=== PATIENT | male | born 1960 | race Caucasian/White ===

== ENCOUNTER → 2024-02-06 17:32 | Outpatient (REF) | payer OTHER, SELFPAY | LOC: MRI 3T 17:32 | PROVIDERS: ATTENDING PHYSICIAN Family Medicine | DX: Z86.79 Personal history of other diseases of the circulatory system (principal) | CPT/HCPCS: 70546; A9585 ==

== ENCOUNTER → 2024-06-11 15:33 | Outpatient (REF) | payer OTHER, SELFPAY | LOC: RAD 15:33 | PROVIDERS: ATTENDING PHYSICIAN Family Medicine | DX: E11.22 Type 2 diabetes mellitus with diabetic chronic kidney disease (principal); S89.92XS Unspecified injury of left lower leg, sequela; M79.604 Pain in right leg; M79.605 Pain in left leg | CPT/HCPCS: 72110; 73523; 73552 ==

== ENCOUNTER 2024-11-29 18:35 | Emergency (ER) | payer OTHER, SELFPAY ==
[2024-11-29 18:40] VITALS: BP 187/87
[2024-11-29 20:40] VITALS: BMI 26.2
[2024-11-29 20:42] VITALS: BP 154/83
--- NOTE | 2024-11-29 20:44 | EDRN ---
Pt complains of swelling in L arm, pain in L elbow. Pt notes rash on inner L arm and says he was told his HR is elevated. Pt noticed swelling on Sunday. This visited prompted by pain and having no one else to look at his arm. Pt did not take
anything for this pain however he takes tylenol arthritis for chronic pain. Pt also takes meloxicam so he does not take too much aspirin. No cp, sob, leg pain/swelling, long car ride/air travel, injury to L arm, fever/chills/cough.
[2024-11-29 21:00] VITALS: BP 148/80
[2024-11-29 22:00] VITALS: BP 164/92
[2024-11-29 23:00] VITALS: BP 145/81
--- NOTE | 2024-11-29 23:24 | ED.GENMED ---
History of Present Illness
General
Chief Complaint: DVT/Possible Blood Clot
Time Seen by Provider: 11/29/24 21:47
History of Present Illness
History of Present Illness:
63-year-old male with history of osteoarthritis presenting to the emergency department with left upper extremity pain and swelling. Notes that he noticed the symptoms 2 days ago. Denies inciting injury or trauma. Pain is worse in the forearm
region. Denies numbness or tingling. Denies fever. Denies ever having this in the past. Denies any history of gout. Denies chest pain or difficulty breathing. He did not take any pain medication prior to arrival. Denies additional medical
complaints
Past History
Past History
ED Past Medical History: HTN
Social History
Tobacco: Smoker
Alcohol: Daily
Drug: None
Personal:
Phy Exam
Physical Exam
Physical Exam:
General: Well-appearing, no clinical signs of dehydration, nontoxic and in no acute distress
HEENT: protecting airway
Neck: appears supple
CV: Normal heart rate, regular rhythm
Resp: No accessory muscle use, no increased work of breathing, lungs clear to auscultation bilaterally
Abd: No distention
Extremities: Denies swelling to the left forearm with erythema and warmth. Compartments soft. Distal sensation and pulses intact. Range of motion grossly intact. No significant tenderness to the wrist or elbow joint.
Neuro: alert, no focal neurologic deficit
: deferred
Rectal: deferred
Psych: Normal affect
Skin: Intact
Course
Orders/Labs/Results
Orders:
Orders
11/29/24 18:42
EKG [Electrocardiogram (*1)] Urgent
Reason for Study: Tachycardia
11/29/24 18:43
EKG- Treatment ONCE
11/29/24 22:19
0.9% Sodium Chloride 1000 ml [Nss] 1,000 ml IV BOLUS
Ketorolac [Toradol] 15 mg IV NOW STA
US Periph Venous UPPER Ext LT Urgent
Comment:
Reason For Exam: swelling and pain
11/29/24 23:24
Basic Metabolic Panel Urgent
CPK [Creatine Phosphokinase] Urgent
Complete Blood Count/With Diff Urgent
11/30/24 00:35
Apixaban [Eliquis] 10 mg PO ONCE ONE
Abnormal Lab Results
11/29/24
23:24
RBC 4.37 L 10^6/uL
(4.70-6.10)
Hgb 11.6 L g/dL
(13.0-18.0)
Hct 37.2 L %
(39.0-52.0)
MCH 26.5 L pg
(27.0-31.0)
MCHC 31.2 L g/dL
(33.0-37.0)
RDW 16.4 H %
(11.5-14.5)
Absolute Monos (auto) 0.7 H 10^3/uL
(0.1-0.6)
Monocytes % 9.6 H %
(1.7-9.3)
Chloride 108 H mmol/L
(98-107)
11/29/24 23:24
11/29/24 23:24
Vital Signs
Initial and Last Documented VS:
Initial Vital Signs
Temp Resp BP
98.5 F 18 187/87
11/29/24 18:40 11/29/24 18:40 11/29/24 18:40
Last Documented Vital Signs
Temp Pulse Resp BP Pulse Ox
99.1 F 112 15 124/91 99
11/29/24 20:50 11/30/24 00:29 11/30/24 00:29 11/30/24 00:29 11/29/24 23:25
MDM/Problems Addressed
MDM/Problems Addressed:
63-year-old male presenting for left upper extremity pain. Vital signs on arrival are significant for high blood pressure.
On exam patient is resting comfortably, no acute distress or discomfort. Generalized swelling and erythema to the forearm region with concern for cellulitis. Compartments are soft with lower suspicion for compartment syndrome. In addition,
sensation and pulses are intact. DVT is also consideration. No report of trauma with lower special for fracture or malalignment. Plan for laboratory analysis including CPK and ultrasound imaging
00:50 -ultrasound shows a superficial venous thrombosis throughout much of the left cephalic vein including components that are occlusive, no DVT. Normal CPK. Given how symptomatic patient has been with swelling, I do feel patient warrants a trial
of anticoagulation. No provoking etiology to thrombosis. Patient denies chest pain or difficulty breathing. No concern for acute cardiopulmonary pathology or PE. Will start patient on Eliquis. Plan for outpatient vascular and hematology
follow-up. Prescription for Eliquis provided. Return precautions discussed and patient verbalized understanding
*Pulse Oximetry
SaO2: 99
Oxygen Mode of Delivery: Room air
Patient hypoxic: no
*Critical Care Note
Total Time (30-74mins, 75-104mins- exclusive of procedures): Not Applicable
ED Attending Note
-
Portions of this chart may have been created with voice recognition software.� Occasional wrong word or��sound alike� substitutions may have occurred due to the inherent limitations of voice recognition software.
Discharge Plan
Departure
Prescriptions:
No Action
Unobtainable
0
Referrals:
Alejandro Pearce MD [Family Provider, [facility]]
Interventions
Interventions:
*Risk Screen - Suicide Last Done: 11/29/24 18:42
*General Assessment Last Done: 11/29/24 20:40
*Neglect/Abuse Screening Last Done: 11/29/24 20:40
*ED- Fall Risk Assessment Last Done: 11/29/24 20:54
ED- Cardiac Assessment Last Done: 11/29/24 20:54
ED- Pulmonary Assessment Last Done: 11/29/24 20:54
ED-Peripheral Vascular Assessment Last Done: 11/29/24 20:54
ED-Skin Assessment Last Done: 11/29/24 20:54
Discharge Date and Time
Print Language: ETHIOPIAN
[2024-11-29 23:40] LABS: Hematocrit 37.2 % (39.0-52.0); Hemoglobin 11.6 g/dL (13.0-18.0); Mean Corp Hgb Conc. 31.2 g/dL (33.0-37.0); Mean Corpuscular Volume 85.1 fL (80.0-94.0); Nucleated Red Blood Cells % 0 % (-); Platelet Count 222 10^3/uL (130-400); Red Cell Dist. Width 16.4 % (11.5-14.5)
[2024-11-30 00:01] LABS: Blood Urea Nitrogen 16 mg/dl (9-20); Calcium 10.0 mg/dl (8.4-10.2); Carbon Dioxide 22 mmol/L (22-30); Chloride 108 mmol/L (98-107); Estimated Creatinine Clearance 86 ml/min; Glucose 76 mg/dl (70-99); Sodium 136 mmol/L (135-145); eGFR > 60.00
[2024-11-30 00:29] VITALS: BP 124/91
--- NOTE | 2024-11-30 00:29 | EDRN ---
VAT did not come down to start IV. Dr Gregory informed and said pt does not need iv access, ivf or iv toradol. Pt will be discharged.
[2024-11-30] MEDS: ELIQUIS 10 MG PO (00:42)
== END 2024-11-30 01:08 | disposition home or self-care (01) ==
LOC: EMR 18:35
PROVIDERS: EMERGENCY PHYSICIAN Student in an Organized Health Care Education/Training Program; FAMILY PHYSICIAN Family Medicine
DX: M79.622 Pain in left upper arm (principal); R22.32 Localized swelling, mass and lump, left upper limb; I10 Essential (primary) hypertension; F17.200 Nicotine dependence, unspecified, uncomplicated; Z79.01 Long term (current) use of anticoagulants; I82.612 Acute embolism and thrombosis of superficial veins of left upper extremity
CPT/HCPCS: 99284; 80048; 82550; 85025; 93005; 93971